=== PATIENT | female | born 1945 | race Caucasian/White ===

== ENCOUNTER 2016-06-10 06:26 | Day surgery (SDC) | payer OTHER ==
[2016-06-10] MEDS ORDERED: NS 500 ML IV 500 ML IV ONE (07:21)
[2016-06-10] MEDS ORDERED: TETRACAINE 0.5% OPHTH 1 DOSE AFFEYE ONE ×7 (07:35→10:17)
[2016-06-10] MEDS ORDERED: VIGAMOX 0.5% OPHTH 1 DOSE AFFEYE ONE ×5 (07:36→10:31)
[2016-06-10] MEDS ORDERED: PROLENSA OPHTH 1 DOSE AFFEYE ONE (07:47)
[2016-06-10] MEDS ORDERED: ALPHAGAN-P OPHTH 1 DOSE AFFEYE ONE (07:48)
[2016-06-10] MEDS ORDERED: AK-DILATE 2.5% OPHTH 1 DOSE OP ONE ×4 (07:49→07:52)
[2016-06-10] MEDS ORDERED: CYCLOGYL 1% OPHTH 1 DOSE OP ONE ×4 (07:49→07:52)
[2016-06-10] MEDS ORDERED: MYDRIACIL OPHTH 1 DOSE AFFEYE ONE ×4 (07:49→07:52)
[2016-06-10] MEDS: VERSED ONE ×2 (09:12→09:48)
[2016-06-10] MEDS ORDERED: AK-DILATE 10% OPHTH 1 DOSE AFFEYE ONE ×2 (09:12→09:47)
[2016-06-10] MEDS ORDERED: BETADINE OPHTH SOLN 5% EACHEYE ONE (10:02)
[2016-06-10] MEDS ORDERED: ADRENALINE CHL INJ IJ ONE ×2 (10:09→10:17)
[2016-06-10] MEDS ORDERED: XYLOCAINE-MPF 1% IJ ONE ×2 (10:09→10:17)
[2016-06-10] MEDS ORDERED: DUOVISC IO ONE ×2 (10:09→10:17)
[2016-06-10] MEDS ORDERED: BSS OPHTH (PLAIN) 500 ML with VANCOMYCIN HCL 500 MG VIAL 25 MG, ADRENALINE CHL INJ 1 MG IR ONE ×6 (10:10)
[2016-06-10 11:03] VITALS: BP 163/68
== END 2016-06-10 10:55 | disposition home or self-care (01) ==
LOC: SURG1 06:26
PROVIDERS: ATTEND Ophthalmology
PROC: 08RK3JZ Replacement of Left Lens with Synthetic Substitute, Percutaneous Approach (ICD-10-PCS; principal; 2016-06-10 08:15)
PROC: 08J1XZZ Inspection of Left Eye, External Approach (ICD-10-PCS; principal; 2016-06-10 08:15)
PROC: 08DK3ZZ Extraction of Left Lens, Percutaneous Approach (ICD-10-PCS; principal; 2016-06-10 08:15)
DX: H25.12 Age-related nuclear cataract, left eye (principal); H25.012 Cortical age-related cataract, left eye; H52.222 Regular astigmatism, left eye
CPT/HCPCS: 99100; A4217; J0170; J2250; J3370